=== PATIENT | male | born 1940 | race Caucasian/White ===

== ENCOUNTER 2017-12-04 19:36 | Observation (INO) ==
[2017-12-04] MEDS ORDERED: Lidocaine 1%/Epinephrine 1:100,000 Inj 50 ML Vial INFILTRATN ONE (19:51)
[2017-12-04] MEDS ORDERED: Tetanus/Diphtheria Toxoid Adult Vaccine Inj 0.5 ML Vial IM ONE (19:51)
[2017-12-04] MEDS ORDERED: Ketorolac Inj 30 MG/ML (IVP) Vial IV.PUSH ONE (20:07)
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
[2017-12-04] MEDS ORDERED: ceFAZolin 2 GM Premix Inj 2 GM/50 ML PIGGYBACK IV.SIG ONE (22:33)
[2017-12-05] MEDS ORDERED: Morphine Inj 4 MG/ML Vial IV.PUSH PRN (01:27)
[2017-12-05] MEDS ORDERED: Bisacodyl 10 MG Supp RECTAL PRN (01:28)
[2017-12-05] MEDS ORDERED: Acetaminophen 325 MG Tablet PO PRN (01:28)
[2017-12-05 01:46] LABS: Baso # (Auto) 0.1 th/mm3 (0.0-0.2); Baso % (Auto) 0.6 % (0.0-2.0); Eos % (Auto) 0.2 % (0.0-4.0); Hematocrit 38.2 % (39.0-51.0); Hemoglobin 12.8 gm/dL (13.0-17.0); Lymph # (Auto) 2.7 th/mm3 (1.0-4.8); Lymph % (Auto) 23.2 % (9.0-44.0); Mean Corpuscular HGB Conc 33.6 % (32.0-36.0); Mean Corpuscular Volume 92.4 fL (80.0-100.0); Mean Platelet Volume 9.3 fL (7.0-11.0); Mono % (Auto) 8.6 % (0.0-8.0); Neut % (Auto) 67.4 % (16.0-70.0); Platelet Count 194 th/mm3 (150-450); Red Blood Count 4.13 mil/mm3 (4.50-5.90); Red Cell Distribution Width 13.6 % (11.6-17.2); White Blood Count 11.8 th/mm3 (4.0-11.0)
[2017-12-05 01:58] LABS: Activated Partial Thrombo Time 23.1 sec (24.3-30.1); INR 1.1 Ratio; Prothrombin Time 10.9 sec (9.8-11.6)
[2017-12-05 02:06] LABS: Alanine Aminotransferase 36 U/L (12-78); Albumin 3.1 g/dL (3.4-5.0); Anion Gap 10 meq/L (5-15); Aspartate Aminotransferase 24 U/L (15-37); Blood Urea Nitrogen 13 mg/dL (7-18); Calcium 8.1 mg/dL (8.5-10.1); Carbon Dioxide 25.4 meq/L (21.0-32.0); Chloride 103 meq/L (98-107); Glomerular Filtration Rate Greater Than 89 mL/min (>89); Glucose,Random 105 mg/dL (74-106); Potassium 3.5 meq/L (3.5-5.1); Sodium 138 meq/L (136-145)
[2017-12-05 02:09] LABS: Alkaline Phosphatase 42 U/L (45-117); Total Protein 6.5 g/dL (6.4-8.2)
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
[2017-12-05] MEDS ORDERED: Chlorhexidine Gluconate 2% 1 Pack (2 Cloths) TOPICAL ONE (04:17)
[2017-12-05] MEDS: Sod Chloride 0.9% Inj 1,000 ML IV.CONT SCH ×3 (04:45→22:40)
[2017-12-05] MEDS ORDERED: Sodium Chlor 0.9% Inj 500 ML IV.SIG SCH (05:00)
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
--- NOTE | 2017-12-05 13:59 | ECG ---
Date Performed: 12/05/2017 Time Performed: 05:07:20 PTAGE: 77 years EKG: Sinus rhythm Prolonged QT interval Left anterior fascicular block Borderline ECG NO PREVIOUS TRACING DOCTOR: Amrita Molina Interpretating Date/Time 12/05/2017 13:56:45
[2017-12-05] MEDS: Senna/Docusate Sodium 8.6/50 MG Tablet PO SCH ×2 (16:18→20:22)
[2017-12-06] MEDS: Sod Chloride 0.9% Inj 1,000 ML IV.CONT SCH ×2 (07:30→17:30)
[2017-12-06] MEDS: Senna/Docusate Sodium 8.6/50 MG Tablet PO SCH ×2 (08:33→20:24)
[2017-12-06 09:47] LABS: Baso # (Auto) 0.1 th/mm3 (0.0-0.2); Baso % (Auto) 0.8 % (0.0-2.0); Eos # (Auto) 0.1 th/mm3 (0.0-0.4); Eos % (Auto) 1.8 % (0.0-4.0); Hematocrit 37.3 % (39.0-51.0); Hemoglobin 12.8 gm/dL (13.0-17.0); Lymph # (Auto) 1.8 th/mm3 (1.0-4.8); Lymph % (Auto) 23.5 % (9.0-44.0); Mean Corpuscular HGB Conc 34.3 % (32.0-36.0); Mean Corpuscular Hemoglobin 31.7 pg (27.0-34.0); Mean Corpuscular Volume 92.6 fL (80.0-100.0); Mean Platelet Volume 9.8 fL (7.0-11.0); Mono # (Auto) 0.6 th/mm3 (0.0-0.9); Mono % (Auto) 7.2 % (0.0-8.0); Neut # (Auto) 5.1 th/mm3 (1.8-7.7); Neut % (Auto) 66.7 % (16.0-70.0); Platelet Count 195 th/mm3 (150-450); Red Blood Count 4.03 mil/mm3 (4.50-5.90); Red Cell Distribution Width 13.8 % (11.6-17.2); White Blood Count 7.7 th/mm3 (4.0-11.0)
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
[2017-12-06 10:27] LABS: Alanine Aminotransferase 36 U/L (12-78); Albumin 3.1 g/dL (3.4-5.0); Alkaline Phosphatase 42 U/L (45-117); Anion Gap 8 meq/L (5-15); Aspartate Aminotransferase 58 U/L (15-37); Blood Urea Nitrogen 10 mg/dL (7-18); Calcium 8.4 mg/dL (8.5-10.1); Carbon Dioxide 26.7 meq/L (21.0-32.0); Chloride 102 meq/L (98-107); Glomerular Filtration Rate Greater Than 89 mL/min (>89); Glucose,Random 110 mg/dL (74-106); Sodium 137 meq/L (136-145); Total Protein 7.1 g/dL (6.4-8.2)
--- NOTE | 2017-12-06 10:29 | P.PNOP ---
Subjective Interval history: Resting comfortably with no new complaints. Knee immobilizer in place Physical Exam Vital signs: Vital Signs 12/05/17 12:00 12/05/17 20:00 12/05/17 23:58 Temperature 97.2 F L 97.6 F 97.2 F L Pulse Rate 66 71 54 L Respiratory Rate 12 14 14 Blood Pressure 131/62 167/78 H 115/59 L Pulse Oximetry 96 98 96 12/06/17 02:04 12/06/17 08:00 Temperature 98.1 F Pulse Rate 61 Respiratory Rate 15 16 Blood Pressure 123/66 Pulse Oximetry 96 Intake & Output 12/05/17 12/06/17 12/06/17 18:59 06:59 18:59 Intake Total 1690 / 1690 1500 / 1500 Output Total 1100 / 1100 Balance 1690 / 1690 400 / 400 Intake: IV 1000 / 1000 1000 / 1000 NS Inj 1,000 ML @ 100 mls/hr IV 1000 / 1000 1000 / 1000 .CONT .Q10H ALBERTA Rx#:[id number] Oral 690 / 690 500 / 500 Output: Urine 1100 / 1100 Other: # Voids 3 Date of Last Bowel Movement 12/03/17 12/04/17 Narrative: Left lower extremity: Knee immobilizer in place. Soft dressings and ice cuff is removed revealing swelling of +2. He has a small abrasion over the proximal tibia approximately 1 x 1 cm. He has intact sensation distally with good capillary refills with active dorsiflexion plantar flexion of foot Results - Labs CBC & Chem 7: 12/06/17 09:11 12/05/17 01:35 Laboratory Results - last 24 hr 12/06/17 09:11 WBC 7.7 RBC 4.03 L Hgb 12.8 L Hct 37.3 L MCV 92.6 MCH 31.7 MCHC 34.3 RDW 13.8 Plt Count 195 MPV 9.8 Neut % (Auto) 66.7 Lymph % (Auto) 23.5 [place] % (Auto) 7.2 Eos % (Auto) 1.8 Baso % (Auto) 0.8 Neut # (Auto) 5.1 Lymph # (Auto) 1.8 [place] # (Auto) 0.6 Eos # (Auto) 0.1 Baso # (Auto) 0.1 WBC Differential . Differential Comment Auto diff final Assessment and Plan - Assessment and Plan Left tibia plateau fracture Nonoperative treatment. He will continue be nonweightbearing on the left lower extremity. He will continue to use knee immobilizer Discontinue ice cuff Ice packs as needed Orthopedically cleared for discharge Follow-up with Dr. Costello or KAYLA in 2 weeks
[2017-12-06 10:35] LABS: Potassium 4.1 meq/L (3.5-5.1)
[2017-12-06] MEDS: Enoxaparin Inj 40 MG/0.4 ML Syringe SQ SCH (15:24)
--- NOTE | 2017-12-06 16:43 | P.CODE44 ---
Code 44 - Inpatient to Obs - Code 44 - Inpatient to Obs Statement: A clinical review of the case has been conducted by a member of the Utilization Review Committee. The findings indicate the patient meets criteria for observation status. The information and decision has been discussed with the attending physician Nevaeh Jay MD and physician provider Daniel Nelson MD. i reviewed with Deidre in case management
[2017-12-07] MEDS: Sod Chloride 0.9% Inj 1,000 ML IV.CONT SCH ×2 (03:02→15:45)
[2017-12-07 06:17] LABS: Albumin 2.7 g/dL (3.4-5.0); Anion Gap 9 meq/L (5-15); Aspartate Aminotransferase 31 U/L (15-37); Calcium 7.9 mg/dL (8.5-10.1); Carbon Dioxide 27.1 meq/L (21.0-32.0); Chloride 104 meq/L (98-107); Glomerular Filtration Rate Greater Than 89 mL/min (>89); Glucose,Random 108 mg/dL (74-106); Potassium 3.7 meq/L (3.5-5.1); Sodium 140 meq/L (136-145)
[2017-12-07 06:34] LABS: Alanine Aminotransferase 43 U/L (12-78); Alkaline Phosphatase 43 U/L (45-117); Blood Urea Nitrogen 9 mg/dL (7-18); Total Protein 6.2 g/dL (6.4-8.2)
[2017-12-07] MEDS: Senna/Docusate Sodium 8.6/50 MG Tablet PO SCH (08:31)
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
[2017-12-07] MEDS: Enoxaparin Inj 40 MG/0.4 ML Syringe SQ SCH (16:07)
[2017-12-07 16:42] VITALS: BP 122/56; PULSE 94; RESP 16; TEMP 97.7; O2SAT 95
== END 2017-12-07 17:36 ==
LOC: NEPE 19:36 → NEDA 12-05 02:29 → INTOOBSV 12-05 02:29 → NEDA 12-05 03:46 → N06 12-05 03:49
PROVIDERS: ADMIT Family Medicine; ATTEND Family Medicine